=== PATIENT | male | born 1975 | race Asian ===

== ENCOUNTER → 2018-11-07 | Outpatient (CLI) | payer OTHER ==
--- NOTE | 2018-11-11 13:07 | PATH ---
[address] [address] PATHOLOGY RPT PROCEDURE Name: CY VALADEZ Room: [facility] MIRELLA Gomez.#: [id number] Admission: 11/07/18 Date of : 71 Discharge: Report #: [id number] Path Case #: [id number] Note [facility] Accession Number: [id number] TESTS RESULT FLAG UNITS REF RANGE LAB Clinician Provided Cytology Information No. of containers..01 Other (Miscellaneous) Source: RIGHT THYROID NODULE DIAGNOSIS: 02 RIGHT THYROID NODULE NEGATIVE FOR MALIGNANT CELLS. [place] CATEGORY II. SPECIMEN CONSISTS OF BENIGN FOLLICULAR CELLS, FEW HEMOSIDERIN-LADEN MACROPHAGES, AND ABUNDANT COLLOID. THIS PATTERN IS CONSISTENT WITH A COLLOID NODULE. Pathologist ICD10: 02 E04.1 Signed out by: 02 Michael Alas MD, Pathologist NPI- [id number] Performed by: Cathy Tong, Torpedo Worker ([facility]) Gross description: 01 10ML, RED, CLEAR /LCS FLAG LEGEND: L-Low Normal,H-High Normal,LL-Alert Low,HH-Alert High <-Panic Low,>-Panic High,A-Abnormal,AA-Critical Abnormal Performed at: [address] [place] [address] Boogie Merida MD, [address] [place] [address] [facility], [place] [address] Michael Alas MD, Specimen Comment: A courtesy copy of this report has been sent to Specimen Comment: [phone], . Specimen Comment: Report sent to / DR RICKS Specimen Comment: A duplicate report has been generated due to demographic updates. Performed at: [address], [place], [place] [id number] MD Boogie Merida MD Phone: [phone]
== END | disposition home or self-care (01) ==
LOC: M.ULTRA 08:22
DX: E04.1 Nontoxic single thyroid nodule (principal)